=== PATIENT | female | born 1975 | race Asian ===

== ENCOUNTER 2020-01-23 12:21 | Emergency (ER) | payer OTHER ==
[~2020-01-23] VITALS: Ht 167.6 cm; Wt 97.5 kg
[2020-01-23 17:10] LABS: PLATELET COUNT 152 K/uL (152-353)
[2020-01-23 17:18] LABS: POTASSIUM 4.4 mmol/L (3.6-5.2)
[2020-01-23 20:54] VITALS: BP 128/72; TEMP 98.9
== END 2020-01-23 20:54 | disposition home or self-care (01) ==
LOC: ED 12:21
PROVIDERS: General Practice
DX: U07.1 COVID-19 (principal); Z20.828 Contact with and (suspected) exposure to other viral communicable diseases
CPT/HCPCS: 80053; 82728; 83605; 83735; 85027; 86140; 87502; 87635; 99283; U00003

== ENCOUNTER 2022-05-05 10:02 | Outpatient (CLI) | payer OTHER | END 2022-05-05 20:43 | disposition home or self-care (01) | LOC: MAMMO 10:02 | PROVIDERS: ATTEND Nurse Practitioner Family | DX: Z12.31 Encounter for screening mammogram for malignant neoplasm of breast (principal) ==

== ENCOUNTER 2022-06-09 12:31 | Outpatient (CLI) | payer OTHER | END 2022-06-09 20:28 | disposition home or self-care (01) | LOC: MAMMO 12:31 | PROVIDERS: ATTEND Family Medicine | DX: R92.8 Other abnormal and inconclusive findings on diagnostic imaging of breast (principal) ==

== ENCOUNTER 2022-12-08 11:40 | Outpatient (CLI) | payer OTHER | END 2022-12-08 19:08 | disposition home or self-care (01) | LOC: MAMMO 11:40 | PROVIDERS: ATTEND Family Medicine | DX: R92.8 Other abnormal and inconclusive findings on diagnostic imaging of breast (principal) ==